=== PATIENT | female | born 1940 | race Caucasian/White ===

== ENCOUNTER 2023-10-08 13:04 | Emergency (ER) | payer MEDICARE, SELFPAY ==
[2023-10-08] VITALS (16 sets, daily range): BP systolic 146–191; BP diastolic 66–90; PULSE 68–89; RESP 18–20; TEMP 37; O2SAT 97–100; BMI 25.2
--- NOTE | 2023-10-08 13:47 | CRLHL7_ITS ---
For Patients: As a result of the Century Cures Act, medical imaging exams and procedure reports are released immediately into your electronic medical record. You may view this report before your referring provider. If you have questions, please contact your health care provider. INDICATION: Chest pain and shortness of breath. TECHNIQUE: Chest 2 views. COMPARISON: None. FINDINGS: Cardiovascular and mediastinum: Heart size and vasculature are normal in caliber and appearance. Lungs and pleural spaces: Lungs are clear except for a calcified granuloma in the left midlung. No sign of infiltrate or mass. No sign of pleural effusion. No pneumothorax. Bones and soft tissues: No significant findings. IMPRESSION: No acute or significant findings. Dictated by Everton Fox MD @ 10/08/2023 3:09:57 PM (Electronically Signed)
--- NOTE | 2023-10-08 13:50 | ED_ITS ---
HPI - General Adult General Date Seen: 10/08/23 Chief complaint: Chest Pain Stated complaint: Chest pressure, possible reaction to medication Time Seen by Provider: 10/08/23 13:10 History of Present Illness HPI narrative: This is a very pleasant 83-year-old female who presents to the ER today with her . They were sent to the ER today from their clinic triage for evaluation of chest pain and shortness of breath and high blood pressure. According to the triage nurse she has been having shortness of breath and chest pressure for about a week and had a bad episode of shortness of breath and chest discomfort over the weekend. According to the patient that is not entirely accurate. The patient is very vague about her symptoms and his min is a minimizing them the medically. It is hard to even get a good chronological description of her symptoms. She has a history of hypertension and history of high cholesterol. She was started on medicines for blood pressure in June. She was on amlodipine but developed swelling of her legs so was taken off that medication. She has been on losartan and metoprolol since the beginning of August. Despite those meds her blood pressure tends to run about 200 systolic when she is in her clinic. She does not have any history of coronary disease or stents. No other known risk factors for coronary disease other than age, hypertension, hypercholesterolemia. For the past 4 weeks or so, she has been noticing some achy discomfort in both of her feet that tends to be worse when she sits still and better when she walks. She thinks it is probably a side effect of 1 of the 2 new blood pressure medications she is on. She has not had any injury. There has not been any pallor or redness or discoloration of her feet. No swelling. She can not really tell me what brings it on or makes it better other than it seems to be less notable more she walks. She is able to recall that she had an episode about a week ago when she was carrying a case of soda up the steps from the basement where she got very short of breath and had chest discomfort. It sounds like this lasted a few minutes and got better when she stopped going up the steps. She had a few more cases of soda carry but decided not carry them that day. She can not recall if she of ultimately care than later or not. Nurses say she has been having shortness of breath all week and it sounds like that may be true. However when I try to ask the patient about other episode of shortness of breath she goes to great efforts to minimize the symptoms. She says she really did not think about it because she thought it was a side effect of her medicine. She does not know how often they happen or what brings them on or what makes them better. She will not even tell me if they have happened today or yesterday or this week or not. She just will not really endorse any symptoms at all other than she is pretty confident she had that episode of pain and shortness of breath last week. When asked her directly if she is having any symptoms now she says no. When asked her if she is having any symptoms today she says she is not. She says she just tried to call the clinic to have them adjust her blood pressure medicines. Apparently they forced her to come over here. According to some of the records from [facility] obtain through [facility] everywhere, she had a phone triage visit today. Over the last couple weeks, Pili has been having chest pressure/heaviness and shortness of breath intermittently. Shortness of breath is only with activity, but not with all activity, seems random. Chest pressure/heaviness isn't correlated specifically with activity, can happen at rest. There is also a record in [facility] of a phone call on September 10 with the patient was complaining of pain and burning affecting the soles of her feet. Her primary doctor, Dr. Baltazar , looked up her meds not think it was likely that the patient side side effect. Related Data Home Medications Medication Instructions Recorded Confirmed amlodipine 5 mg tablet 5 mg PO DAILY 10/08/23 10/08/23 losartan 100 mg tablet 100 mg PO DAILY 10/08/23 10/08/23 metoprolol succinate 25 mg 25 mg PO DAILY 10/08/23 10/08/23 tablet,extended release 24 hr Allergies Allergy/AdvReac Type Severity Reaction Status Date / Time alendronate sodium AdvReac Unknown Verified 10/08/23 14:07 amlodipine AdvReac Unknown Verified 10/08/23 13:45 calcitonin [From FORTICAL] AdvReac Unknown Verified 10/08/23 14:07 ibandronate Allergy Unknown Uncoded 10/08/23 14:07 Exam Narrative: Exam Narrative: Constitutional: Appears well-developed and well-nourished. Alert. Conversant. Non toxic. HENT: Head: Atraumatic. Nose: Nose normal. Mouth/Throat: Oral mucosa is clear and moist. no trismus. Pharynx normal. Tonsils symmetric. No tonsillar enlargement, erythema, or exudate. Eyes: Conjunctivae normal. EOM normal. Pupils equal, round, and reactive to light. No scleral icterus. Neck: Normal range of motion. Neck supple. No tracheal deviation present. No JVD Cardiovascular: Normal rate, regular rhythm. No gallop. No friction rub. No murmur heard. Symmetric radial and DP and PT artery pulses normal brisk distal capillary refill in the soles and toes of both feet. Upper extremities normal as well. Pulmonary/Chest: Effort normal. No stridor. No respiratory distress. No wheezes. No rales. No rhonchi . No tenderness. Abdominal: Soft. Bowel sounds normal. No distension. No mass. No tenderness. No rebound. No guarding. Musculoskeletal: RUE: Normal range of motion. No tenderness. No deformity LUE: Normal range of motion. No tenderness. No deformity RLE: Normal range of motion. No edema. No tenderness. No deformity LLE: Normal range of motion. No edema. No tenderness. No deformity No evidence for any swelling or edema in her legs or feet. No signs of trauma to her feet. No skin rashes, ulcers, or any desquamation. No bruising or signs of trauma to the feet. Lymph: No cervical adenopathy. No ascending lymphangitis in her legs. Neurological: Alert and oriented to person, place, and time. Normal strength. CN II-VII intact. No sensory deficit. GCS eye subscore is 4. GCS verbal subscore is 5. GCS motor subscore is 6. Normal coordination Skin: Skin is warm and dry. No rash noted. No pallor. Normal capillary refill. Psychiatric: Normal mood. Normal affect. She is very polite and chuckling but also very vague and post a great efforts to minimize her symptoms of shortness of breath. Const: Vital Signs, click to edit/add: Vital Signs - 24 hr 10/08/23 13:13 10/08/23 13:14 10/08/23 13:15 Temperature 98.6 F Pulse Rate 87 87 Pulse Rate [Right Pulse Oximeter] 89 Respiratory Rate 18 Blood Pressure 191/90 H Blood Pressure [Ri ght Upper Arm] 191/90 H Pulse Oximetry 100 100 99 Oxygen Delivery Me thod Room Air 10/08/23 13:15 10/08/23 13:30 10/08/23 13:31 Temperature Pulse Rate 89 82 82 Pulse Rate [Right Pulse Oximeter] Respiratory Rate Blood Pressure 181/81 H Blood Pressure [Ri ght Upper Arm] Pulse Oximetry 100 100 100 Oxygen Delivery Me thod 10/08/23 13:45 10/08/23 14:01 10/08/23 14:02 Temperature Pulse Rate 76 84 77 Pulse Rate [Right Pulse Oximeter] Respiratory Rate Blood Pressure 160/86 H Blood Pressure [Ri ght Upper Arm] Pulse Oximetry 100 97 100 Oxygen Delivery Me thod 10/08/23 14:21 10/08/23 14:30 10/08/23 14:31 Temperature Pulse Rate 79 74 75 Pulse Rate [Right Pulse Oximeter] Respiratory Rate Blood Pressure 154/68 H Blood Pressure [Ri ght Upper Arm] Pulse Oximetry 99 100 98 Oxygen Delivery Me thod 10/08/23 14:45 10/08/23 15:01 10/08/23 15:16 Temperature Pulse Rate 75 74 76 Pulse Rate [Right Pulse Oximeter] Respiratory Rate Blood Pressure 155/66 H Blood Pressure [Ri ght Upper Arm] Pulse Oximetry 98 99 100 Oxygen Delivery Me thod Course Vital Signs Vital signs: Initial Vital Signs Pulse Rate 87 10/08/23 13:13 Blood Pressure 191/90 H 10/08/23 13:13 Blood Pressure Mean 123 H 10/08/23 13:13 Pulse Oximetry 100 10/08/23 13:13 Vital Signs Pulse Rate 87 10/08/23 13:13 Blood Pressure 191/90 H 10/08/23 13:13 Pulse Oximetry 100 10/08/23 13:13 Temperature 98.6 F 10/08/23 13:15 Pulse Rate 76 10/08/23 15:16 Respiratory Rate 18 10/08/23 13:15 Blood Pressure 155/66 H 10/08/23 15:01 Pulse Oximetry 100 10/08/23 15:16 Oxygen Delivery Method Room Air 10/08/23 13:15 Medications Administered Medications: Discontinued Medications Generic Name Dose Route Start Last Admin Trade Name Freq PRN Reason Stop Dose Admin Aspirin 162 mg 10/08/23 13:47 10/08/23 14:18 Aspirin 81 Mg Tab.Chew PO 10/08/23 13:48 162 mg ONCE ONE Administration Metoprolol Tartrate 25 mg 10/08/23 13:47 10/08/23 14:18 Metoprolol Tartrate 25 Mg Tablet PO 10/08/23 13:48 25 mg ONCE ONE Administration Medical Decision Making MDM Narrative Medical decision making narrative: This patient presents to the ER today for evaluation of an episode of chest discomfort and shortness of breath epic occurred with exertion last week and mild episodes of shortness of breath occurring since then. The patient was very minimizing about her symptoms and really says she did not think she was having any heart trouble in did not want to be here in the ER. She came here only because her phone triage nurse insisted.. Differential was broad. No evidence of palpitations, syncope or other cardiac dysrhythmia. Patient was initially reluctant to have any workup but ultimately did accept some workup for her heart. I told her I was concerned about possible angina with her exertional chest discomfort and shortness of breath. She is minimizing that possibility. Ultimately she will allow us to do EKG, troponin testing, and chest x-ray. She says she is not actually having any shortness of breath today and has not had any chest pain since last week. Given time since onset of symptoms, I do not think the patient needs to be admitted for further sets of enzymes. EKG shows no evidence for pericarditis. Clinical presentation not suggestive of myocarditis. Chest x-ray shows no evidence for pneumonia, pneumothorax, pulmonary edema, pleural effusion, rib fracture, cardiomegaly. Mediastinum is normal on the x-ray. The patient has no ripping or tearing pain through to the back and has symmetric pulses on exam, no other acute neuro findings so I doubt aortic dissection. Risk of radiation and contrast exposure would outweigh the benefit of CT angiogram. We considered PE for this patient. D-dimer is normal. No wheezing or bronchospasm to suggest COPD/asthma. No recent cough to suggest COVID. Although I think the patient's symptoms could be consistent with unstable angina, she does not want any further testing. Therefore I will recommend that she see her primary care doctor as soon as possible to arrange an outpatient stress test. I invited her to return to the ER and encouraged her to return if she has any recurrent episodes of shortness of breath or any chest pain, even if the symptoms are only mild. She verbalizes her understanding. She understands my concern but does not want further workup. She is also having uncontrolled hypertension. Blood pressure was about 190/90 here in the ER today. At this point no sign of any end-organ damage. We did give her an extra 25 mg oral dose of metoprolol while she was here and blood pressure came down to about 155/66. Heart rate may came down from the 80s to 70s. She seems to be tolerating the metoprolol well. She is already on losartan and metoprolol as an outpatient. She is very worried about those meds because since she started on them she has developed a lot of pain in the soles of her feet. She really wants to stop them. She agrees to do a partial plan. Will have her stop the losartan and continue on the metoprolol. That way, stopping 1 medication at a time, helps us identify which medication is the culprit for her foot pain. I am not convinced that her foot pain is a side effect of her medications, but the radically a could be. To control her blood pressure will have her increase her dose of metoprolol from 25 mg once daily up to 25 mg twice per day. She will follow-up with her primary care provider to recheck her blood pressure and arrange a stress test within a week. She will return to the ER right away if she has any worsening symptoms in her chest. With reasonable clinical confidence, I think the patient is safe for outpatient follow up. Discussed return precautions. Questions answered. Patient voices agreement with the plan. Lab Data Labs: Lab Results 10/08/23 Range/Units 13:58 WBC 6.71 (4.50-11.00) K/uL RBC 4.45 (4.00-5.20) m/uL Hgb 11.8 L (12.0-16.0) gm/dL Hct 37.6 (33.0-51.0) % MCV 85 (80-100) fL MCH 27 (26-34) pg MCHC 31 L (32-36) gm/dL RDW Coeff of Willy 15.6 H (11.5-15.5) % Plt Count 249 (140-440) K/uL Neut % (Auto) 65.5 (42.0-72.0) % Lymph % (Auto) 23.2 (20-44) % Swift % (Auto) 9.5 (0.0-11.0) % Eos % (Auto) 1.2 (0.0-7.0) % Baso % (Auto) 0.3 (0.0-3.0) % Neut # (Auto) 4.39 (1.7-7.0) K/uL Lymph # (Auto) 1.56 (0.90-2.90) K/uL Swift # (Auto) 0.60 (0.00-0.90) K/UL Eos # (Auto) 0.08 (0.00-0.50) K/uL Baso # (Auto) 0.02 (0.00-0.30) K/uL Abs Immat Gran (auto) 0.02 (0.00-0.30) K/uL Imm/Tot Granulo (auto) 0.3 % D-Dimer Quant (PE/DVT) 0.39 (0.00-0.50) ug/ml Sodium 139 (135-149) mmol/L Potassium 4.2 (3.6-5.1) mmol/L Chloride 103 (96-114) mmol/L Carbon Dioxide 23 (20-32) mmol/L Anion Gap 13 (7-15) mEq/L BUN 25 (7-30) mg/dL Creatinine 1.0 (0.5-1.5) mg/dL Estimated Creat Clear 31.69 Estimated GFR 57 ml/min Glucose 99 (60-115) mg/dL Calcium 8.8 (8.4-10.6) mg/dL Troponin I < 0.01 L (0.01-0.04) ng/mL NT-Pro-B Natriuret Pep 193 pg/mL Imaging Data Chest x-ray: Attestation: I have reviewed the pertinent imaging results. Radiologist's impression: IMPRESSION: No acute or significant findings. ECG Data Attestation: I personally reviewed and interpreted this ECG as follows: Interpretation: Normal sinus rhythm rate 72 MS 162 QRS axis normal axis. No pathologic Q-waves. ST segment/T wave: No ST segment elevation or depression. QTc: 398 Discharge Plan Discharge Clinical Impression: Atypical chest pain, Hypertension Patient Disposition: Home, Self-Care Condition: Stable Instructions: Chest Pain (ED), Hypertension (ED) Additional Instructions: To manage her blood pressure, please increase her dose of metoprolol from 25 mg once per day up to 25 mg 2 times per day. It is not clear why her feet have been hurting lately. Try stopping your losartan temporarily to see if her feet get better when you stop that medication. Continue on metoprolol for now. If you have any more episodes of chest discomfort or any more episodes of shortness of breath, please come back to the ER right away to be rechecked. Follow-up with your regular doctor for blood pressure recheck within 1 week. If you have a blood pressure cuff at home, measure blood pressure once every day and record the readings. Bring them with you to your doctor so they can see how your blood pressure is doing at home. Prescriptions: No Action amlodipine 5 mg tablet 5 mg PO DAILY metoprolol succinate 25 mg tablet extended release 24 hr 25 mg PO DAILY losartan 100 mg tablet 100 mg PO DAILY Follow Up/Referrals: Provider,Not a Local [Referring] - Stand Alone Forms: [employer] Info Instructions
[2023-10-08 14:10] LABS: Basophils Absolute Auto 0.02 K/uL (0.00-0.30); Basophils Percent Auto 0.3 % (0.0-3.0); Eosinophils Absolute Auto 0.08 K/uL (0.00-0.50); Eosinophils Percent Auto 1.2 % (0.0-7.0); Hematocrit 37.6 % (33.0-51.0); Hemoglobin* 11.8 gm/dL (12.0-16.0); Immature Granulocytes Abs Auto 0.02 K/uL (0.00-0.30); Immature Granulocytes Pct Auto 0.3 %; Lymphocytes Absolute Auto 1.56 K/uL (0.90-2.90); Lymphocytes Percent Auto 23.2 % (20-44); Mean Corpuscular HGB Conc 31 gm/dL (32-36); Mean Corpuscular Hemoglobin 27 pg (26-34); Mean Corpuscular Volume 85 fL (80-100); Monocytes Percent Auto 9.5 % (0.0-11.0); Neutrophils Absolute Auto 4.39 K/uL (1.7-7.0); Neutrophils Percent Auto 65.5 % (42.0-72.0); Platelet Count* 249 K/uL (140-440); RDW Coefficient of Variation % 15.6 % (11.5-15.5); Red Blood Count 4.45 m/uL (4.00-5.20); White Blood Count* 6.71 K/uL (4.50-11.00)
[2023-10-08] MEDS: METOPROLOL TARTRATE 25 MG TABLET PO (14:18)
[2023-10-08] MEDS: ASPIRIN 81 MG TAB.CHEW 162 MG PO (14:18)
[2023-10-08 14:22] LABS: Chloride* 103 mmol/L (96-114)
[2023-10-08 14:23] LABS: Potassium* 4.2 mmol/L (3.6-5.1); Sodium* 139 mmol/L (135-149)
[2023-10-08 14:25] LABS: Est. Creatinine Clearance* 31.69; Estimated Glomerular Filt Rate 57 ml/min
[2023-10-08 14:26] LABS: Anion Gap 13 mEq/L (7-15); Blood Urea Nitrogen* 25 mg/dL (7-30); Calcium* 8.8 mg/dL (8.4-10.6); Carbon Dioxide* 23 mmol/L (20-32); Glucose* 99 mg/dL (60-115)
[2023-10-08 14:38] LABS: NT Pro B Type NatriureticPept* 193 pg/mL
[2023-10-08 14:39] LABS: Troponin I* < 0.01 ng/mL (0.01-0.04)
[2023-10-08 14:43] LABS: D Dimer Quantitative* 0.39 ug/ml (0.00-0.50)
[2023-10-08 15:00] LABS: Slide Review Reflex No
== END 2023-10-08 15:43 | disposition home or self-care (01) ==
PROVIDERS: Emergency Provider Emergency Medicine; PCP Family Medicine
DX: R07.89 Other chest pain (principal); R06.02 Shortness of breath; I10 Essential (primary) hypertension
CPT/HCPCS: 36415; 71046; 80048; 83880; 84484; 85025; 85379; 99284; A9270

== ENCOUNTER 2025-02-08 09:00 | Outpatient (CLI) | payer MEDICARE, SELFPAY ==
--- NOTE | 2025-02-08 09:15 | CRLHL7_ITS ---
For Patients: As a result of the Century Cures Act, medical imaging exams and procedure reports are released immediately into your electronic medical record. You may view this report before your referring provider. If you have questions, please contact your health care provider. INDICATION: Resistant hypertension TECHNIQUE: Grayscale, color Doppler and spectral Doppler ultrasound of the kidneys and renal arteries performed. COMPARISON: None available FINDINGS: BILATERAL RENAL ARTERY DUPLEX ULTRASOUND ABDOMINAL AORTA: Peak systolic velocity = 145 cm/s. No aortic aneurysm. RIGHT KIDNEY: 8.7 cm in length. There is no hydronephrosis. Renal cortex measures 9 millimeters. Peak systolic velocity = 193 cm/second Renal artery to aortic peak systolic velocity ratio = 1.3 Resistive indices: 0.8 Renal vein = patent LEFT KIDNEY: 9.2 cm in length. There is no hydronephrosis. Renal cortex measures 11 millimeters. Peak systolic velocity = 189 cm/second Renal artery to aortic peak systolic velocity ratio = 1.3 Resistive indices: 0.8 Renal vein = patent IMPRESSION: No evidence of significant renal artery stenosis. 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 No hydronephrosis. Dictated by Gaetano Flower MD @ 02/08/2025 2:28:28 PM (Electronically Signed)
== END 2025-02-08 09:01 | disposition home or self-care (01) ==
LOC: US 09:03
PROVIDERS: PCP Family Medicine; Visit Provider Student in an Organized Health Care Education/Training Program
DX: I12.9 Hypertensive chronic kidney disease with stage 1 through stage 4 chronic kidney disease, or unspecified chronic kidney disease (principal); I1A.0 Resistant hypertension
CPT/HCPCS: 76775; 93975